=== PATIENT | female | born 1960 | race Caucasian/White ===

== ENCOUNTER → 2018-08-23 10:39 | Outpatient (CLI) | payer MEDICARE, MEDICAID, SELFPAY ==
--- NOTE | 2018-08-23 11:04 | XR_ITS ---
XR hand RT min 3V HISTORY: Right hand pain and swelling ITS.REASON: RT HAND PAIN ORDERING PHYSICIAN: Butch Lanza MD PATIENT AGE: 57 years COMPARISON: None FINDINGS: There has been prior fusion of the second DIP joint with a longitudinal screw in the distal aspect of the distal phalanx into the distal to mid middle phalanx. Osteoarthritic changes are present at the PIP and DIP of the third finger. There are osteoarthritic changes at the PIP of the fourth finger with subchondral lucencies laterally suggesting erosive osteoarthritis. Mild osteoarthritic changes of the DIP joint of the fifth finger. No fracture or dislocation. 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
== END ==
PROVIDERS: PCP Internal Medicine Adolescent Medicine; Visit Provider Internal Medicine Adolescent Medicine
DX: M79.641 Pain in right hand (principal)
CPT/HCPCS: 73130

== ENCOUNTER → 2019-02-13 14:19 | Outpatient (CLI) | payer MEDICARE, MEDICAID, SELFPAY ==
--- NOTE | 2019-02-13 14:23 | XR_ITS ---
PROCEDURE: XR HAND RT MIN 3V CLINICAL INDICATION: right hand/ thumb pain COMPARISON: [id number] XR hand RT min 3V from 08/23/2018 FINDINGS: There has been prior fusion at the DIP joint of the 2nd digit with a longitudinal screw extending from the tip of the distal phalanx into the mid aspect of the middle phalanx. There is bony fusion of the joint. Severe osteoarthritic changes are present involving the PIP of the 4th and 3rd digits and the DIP of the 3rd and 5th digits. The arthritic changes at the PIP joint of the 4th digit appear to be erosive osteoarthritic change. No fracture or dislocation. IMPRESSION: Prior fusion of the 2nd DIP joint Osteoarthritis Dictated by: Ryan Castillo MD 02/13/2019 16:28 Electronically signed by Ryan Castillo MD in [place] 02/13/2019 16:28
== END ==
PROVIDERS: Visit Provider Orthopaedic Surgery
DX: M79.641 Pain in right hand (principal)
CPT/HCPCS: 73130

== ENCOUNTER → 2019-04-12 09:26 | Outpatient (CLI) | payer MEDICARE, MEDICAID, SELFPAY ==
--- NOTE | 2019-04-12 09:28 | MM_ITS ---
PROCEDURE: MM DIG SCREENING MAMM BI W/CAD Patient Age:58Y CLINICAL INDICATION: screening routine mammogram Previous benign excisional biopsy right breast 1979 when the patient was 19 years old Family history. Two aunts with breast cancer COMPARISON: Prior studies from [place] have have arrived MY DIGITAL SCREEN BILAT from 03/01/2016 MY DIGITAL SCREEN BILAT from 03/28/2017 TECHNIQUE: Standard CC and MLO the images were obtained. R2 CAD reviewed. Bilateral axillary CC view included FINDINGS: The moderate density breast.Slight regression fibroglandular elements since 2016. No dominant or suspicious mass but the additional axillary CC views are helpful bilaterally Right breast appear stable with no new areas of concern. Follow-up right mammogram in 1 year A. previous studies marked a scar at the inferior breast from previous excisional biopsy. This area is stable. No significant findings here. High the Left breast appear stable no new areas of concern. IMPRESSION: Moderately dense, the slightly heterogeneous breast bilaterally-with mild asymmetry However I see no significant new findings compared to prior studies Bilateral follow-up 1 year would be adequate BI-RAD Category: 2 Benign Finding(s) FOLLOW-UP: 1YR 1 Year Follow-up (A letter has been sent to the patient regarding results of the study.) Dictated by: Jordan Rondon MD 04/18/2019 20:36 Electronically signed by Jordan Rondon MD in [place] 04/22/2019 11:28
== END ==
PROVIDERS: PCP Nurse Practitioner Family; Visit Provider Nurse Practitioner Family
DX: Z12.31 Encounter for screening mammogram for malignant neoplasm of breast (principal)
CPT/HCPCS: 77067

== ENCOUNTER 2019-04-29 08:00 | Outpatient (RCR) | payer MEDICARE, MEDICAID, SELFPAY ==
--- NOTE | 2019-03-21 11:20 | HMH.OTOPEV ---
OT Inpatient Evaluation Rehab OT Outpatient Eval Start: 03/21/19 10:59 Freq: Status: Active Protocol: Document 03/21/19 10:59 TFRY (Rec: 03/21/19 11:20 TFRY [id number]) Electronically Signed By Olga Wetzel OT 03/21/19 10:59 Outpatient Therapy Subjective History Subjective History This is a 58 year old right handed female referred to occupational therapy for hand pain and decreased movement. Patient states that the pain is has gotten worse in 6 months. Chief Complaint Pain,Spasms Symptom Type Ache,Dull,Numbness,Shooting Symptoms Relieved By Rest/Positioning,Brace/Support Symptoms Aggravated By Physical Activity Prior Functional Limitations None Current Functional Limitations None Level of pain today (0-10) 4 Pain scale - at its best (0-10) 1 Pain scale - at its worst (0-10) 8 Wrist/Hand Eval Palpation Tenderness/Visual Exam Wrist pain right tenderness wrist exam standard right Wrist/Hand Palpation Findings Tenderness Wrist Range of Motion Right Wrist ROM Reason Not Measured Within Functional Limits Wrist Manual Muscle Testing Right Wrist Extension Strength Grade 3+ Fair+ Wrist Flexion Strength Grade 3+ Fair+ Wrist Radial Deviation Strength Grade 3+ Fair+ Wrist Ulnar Deviation Strength Grade 3+ Fair+ Forearm Supination Strength Grade 3+ Fair+ Forearm Pronation Strength Grade 3+ Fair+ Seed Tester/Pinch Strength Seed Tester Strength Measurement (lbs) 2 Palmar Pinch (3-point) Ability Minimal Impairment Palmar Pinch (3-point) Strength 1 Measurement (lbs) Tip Pinch (2-point) Ability Minimal Impairment Tip Pinch (2-point) Strength Measurement 2 (lbs) Lateral Pinch Ability Minimal Impairment Lateral Pinch Strength Measurement (lbs) 4 OT Outpatient Assessment Impairments Problems/Impairments Palpation Tenderness,Impaired Strength,Impaired Lifting, Impaired Dressing,Impaired Household Care,Impaired Recreational Activities, Subjective C/O Pain Prognosis Rehab Potential Fair Clinical Impression Consistent with Diagnosis Yes Short Term Goals Number of Weeks 2 Decreased Palpation Tenderness Yes: right wrist Increase Strength Yes: increase wrist strength 4 -/5; right pre school teacher-4; pinch strength-2 lbs Decrease Subjective C/O Pain Yes: pain a 4 at worse in right p
--- NOTE | 2019-04-17 07:45 | HMH.RHREAS ---
Rehab Reassessment Rehab OP Re-assessment Start: 04/17/19 07:32 Freq: Status: Active Protocol: Document 04/17/19 07:34 TFRY (Rec: 04/17/19 07:45 TFRY [id number]) Electronically Signed By Olga Wetzel OT 04/17/19 07:34 Rehab Re-assessment Subjective Subjective My pain a 2 at worse. Objective Objective Notes Patient seen this date for skilled occupational therapy services. See exercise flow sheet for exercises. Reassessment of right wrist strength 4-/5 throughout. Right care rep strength - 10 lbs. Pinch strength remain the same. Patient reports decrease pain with all activities and not having pain as much pain as before. Pain at worse is a 2 on 0-10 scale . Assessment Progress Assessment Progressing as Expected Assessment Notes Strength noted to improve with a decrease in pain. Patient goals met STG's - /6 LTG's - 01/13 Goals Not Met strength goals Plan Plan Cont OT working on improving strength in right wrist and hand. Frequency of Therapy 1-2 times per week Duration of therapy 4 weeks Time and Billing Re-Eval Time 5 Re-Eval Billing Units 0 PHYSICIAN CERTIFICATION: I certify the specified therapy services for Karolinadannie Rangel are required, authorized, and reviewed every 30 days.
== END 2019-05-13 14:10 | disposition home or self-care (01) ==
LOC: OT 08:00
PROVIDERS: PCP Nurse Practitioner Family; Visit Provider Nurse Practitioner Family
DX: M79.641 Pain in right hand (principal); M25.641 Stiffness of right hand, not elsewhere classified
CPT/HCPCS: 97014; 97033; 97110; 97164; 97165; G0283

== ENCOUNTER → 2019-07-10 13:34 | Outpatient (CLI) | payer MEDICARE, MEDICAID, SELFPAY ==
[2019-07-10 14:23] LABS: Alanine Aminotransferase 26 U/L (12-78); Albumin Level 4.2 gm/dL (3.4-5.0); Albumin/Globulin Ratio 1.3 (1.1-1.8); Alkaline Phosphatase 83 U/L (46-116); Anion Gap 18.1 mEq/L (5-15); Aspartate Amino Transferase 16 U/L (15-37); Bilirubin,Total 0.3 mg/dL (0.2-1.0); Blood Urea Nitrogen 14 mg/dL (7-18); Calcium 9.6 mg/dL (8.5-10.1); Carbon Dioxide 22 mmol/L (21.0-32.0); Chloride 104 mmol/L (98-107); Chol/HDL Ratio 6.1 (1-3.5); Cholesterol 273 mg/dL (140-200); Estimated Glomerular Filt Rate 87 ml/min (>60); GFR (African American) 105 ML/MIN (>60); Globulin 3.2 gm/dl (1.3-3.2); Glucose 95 mg/dL (74-106); HDL Cholesterol 45 mg/dL (29-89); LDL Cholesterol 159 mg/dL (0-130); Potassium 4.1 mmoL/L (3.5-5.1); Sodium 140 mmol/L (136-145); T4 (Thyroxine) 7.9 ug/dl (4.7-13.3); Thyroid Stimulating Hormone 1.39 uIU/ml (0.358-3.740); Total Protein,Serum 7.4 gm/dL (6.4-8.2); Triglycerides 346 mg/dL (30-200); VLDL Cholesterol 69 mg/dL (0-40)
[2019-07-10 14:52] LABS: Basophils % 0.4 % (0.1-2.0); Eosinophils # 0.1 K/mm3 (0.0-0.4); Hematocrit 46.8 % (37.0-47.0); Hemoglobin 15.2 g/dL (12.2-16.2); Lymphocytes # 2.4 K/mm3 (0.7-4.5); Mean Corpuscular HGB Conc 32.5 g/dL (31.8-35.4); Mean Corpuscular Hemoglobin 29.7 pg (27.0-31.2); Mean Corpuscular Volume 91.6 fl (81-99); Mean Platelet Volume 9.6 fl (7.4-10.4); Monocytes # 0.4 K/mm3 (0.1-1.0); Monocytes % 6.4 % (1.7-9.3); Neutrophils # 3.9 K/mm3 (1.8-7.8); Neutrophils % 57.3 % (37.0-80.0); Platelet Count 333 K/mm3 (142-424); Red Blood Count 5.11 M/mm3 (4.20-5.40); Red Cell Distribution Width 12.9 % (11.5-17.5); White Blood Count 6.7 K/mm3 (4.8-10.8)
[2019-07-11 15:52] LABS: Vitamin D 25 Hydroxy 80.3 ng/mL (30.0-100.0)
[2019-07-11 15:53] LABS: Vitamin B12 716 pg/mL (232-1245)
== END ==
PROVIDERS: Visit Provider Nurse Practitioner Family
DX: M25.50 Pain in unspecified joint (principal); R53.83 Other fatigue; I10 Essential (primary) hypertension
CPT/HCPCS: 80053; 80061; 82607; 82652; 84436; 84443; 85025

== ENCOUNTER 2020-05-14 09:33 | Emergency (ER) | payer MEDICARE, MEDICAID, SELFPAY ==
[2020-05-14 09:42] VITALS: BP 108/50; PULSE 100; RESP 16; TEMP 36.9; O2SAT 98; BMI 26.6
[2020-05-14 09:59] VITALS: BP 108/50; PULSE 100; RESP 16; TEMP 36.9; O2SAT 98; BMI 26.6
--- NOTE | 2020-05-14 10:04 | HMH.EDUTC ---
[facility] [place] Clinical Impression: Back pain Qualifiers: Back pain location: back pain in other location Chronicity: chronic Qualified Code(s): M54.9 - Dorsalgia, unspecified Disposition: Home, Self-Care Condition on Discharge: Good Instructions: Low Back Pain, DI for Low Back Pain Additional Instructions: Go home and rest. It would be best if you rested tomorrow too. No heavy lifting. No twisting. Take the oral medications as directed. Don't start the oral steroids (medrol dose pack) until tomorrow, since you had the shots in here today. Follow up with your regular doctor. GO TO THE ER FOR ANY WORSENING SYMPTOMS OR CONCERN, ESPECIALLY BOWEL OR BLADDER ISSUES, SADDLE AREA NUMBNESS, FEVER, ETC DON'T TAKE THE IBUPROFEN WHILE YOU ARE ON THE MEDROL DOSE PACK (STEROIDS). BOTH OF THESE MEDICATIONS WILL BE DOING ABOUT THE SAME THING, SO TAKING THEM TOGETHER IS NOT INDICATED. AFTER YOU ARE FINISHED WITH STEROIDS YOU CAN TAKE THE IBUPROFEN. Prescriptions: methylPREDNISolone [Medrol] 4 mg PO DIRECTED 6 Days #21 tab.ds.pk Transmission Status: Received by [id number] Naproxen [Naproxen 500mg tab] 500 mg PO BIDP PRN #30 tab PRN Reason: Moderate Pain Transmission Status: Received by [id number] Referrals: Clayton Melton APRN [Primary Care Provider] - Time of Disposition: 10:37 Medical Decision Making - Medical Records Medical records reviewed: No: I reviewed the patient's medical records. - Dio Inquiry Pt receiving controlled substance: No Vital Signs: 05/14/20 09:42 05/14/20 09:59 05/14/20 10:40 Temperature 98.4 F 98.4 F 98.4 F Temperature Source Oral Oral Pulse Rate 100 H Pulse Rate [Right] 100 H 100 H Respiratory Rate 16 16 16 Blood Pressure 108/50 L Blood Pressure [Right Arm] 108/50 L 108/50 L Blood Pressure Mean [Right Arm] 69 69 Blood Pressure Source [Right Arm] Automatic Cuff Automatic Cuff Blood Pressure Position [Right Arm] Sitting Sitting 02 Sat by Pulse Oximetry 98 98 Oxygen Delivery Method Room Air Room Air Orders (Tests/Meds): ED MEDICATIONS Discontinued Medications Generic Name Dose Route Start Last Admin Trade Name Freq PRN Reason Stop Dose Admin Ketorolac Tromethamine 60 mg 05/14/20 10:16 05/14/20 10:32 Ketorolac 60mg/2ml Vial IM 05/14/20 10:17 60 mg ONCE ONE Administration Methylprednisolone Sodium Succinate 125 mg 05/14/20 10:16 05/14/20 10:32 Methylprednisolone Sod Succ 125mg Vial IM 05/14/20 10:17 125 mg ONCE ONE Administration [facility] [place] - General Stated complaint: tingling in hands & toes, back pain Time Seen by Provider: 05/14/20 10:05 Mode of Arrival: Ambulatory Source of Information: Patient Limitations: No Limitations Description of Symptoms (Recalled from Triage Doc. by RN): PATIENT C/O BACK AND NECK PAIN THAT STARTED THANKSGIVING. SHE STATES IN THE PAST 3 DAYS, PAIN HAS MOVED DOWN TO HIPS AND LEGS; C/O NUMBNESS AND ELECTRICAL SHOCK FEELING TO BILATERAL HANDS AND TOES. IBUPROFEN AND FLEXERIL ARE NOT HELPING, HEATING PAD AND LYING DOWN MAKES IT WORSE. HEENT Symptoms (Recalled from RN notes): No Resp Symptoms (Recalled from RN notes): No Skin Symptoms (Recalled from RN notes): No MS Symptoms (Recalled from RN notes): Yes Functional Status (Recalled from RN notes): WNL - History of Present Illness Provider Complaint: She c/o low back pain that radiates down both legs. She has a long history of this. She states that usually ibuprofen and flexeril have helped. But, at this time they have not relieved her pain. - Related Data Home Medications Medication Instructions Recorded Confirmed cholecalciferol (vitamin D3) 25 1,000 unit PO DAILY 03/08/19 07/10/19 mcg (1,000 unit) capsule Previous Rx's Medication Instructions Recorded cyclobenzaprine 10 mg tablet 10 mg PO TID #14 tab 03/08/19 simvastatin 5 mg tablet 5 mg PO DAILY #30 tab 07/20/19 pepsin 450 mg-amylase 60 mg-ox 1 t
[2020-05-14 10:40] VITALS: BP 108/50; PULSE 100; RESP 16; TEMP 36.9; O2SAT 98
== END 2020-05-14 10:45 | disposition home or self-care (01) ==
PROVIDERS: Emergency Provider Nurse Practitioner Family; PCP Nurse Practitioner Family
DX: M54.9 Dorsalgia, unspecified (principal); R20.2 Paresthesia of skin; E78.5 Hyperlipidemia, unspecified; F17.210 Nicotine dependence, cigarettes, uncomplicated; Z91.040 Latex allergy status; Z88.5 Allergy status to narcotic agent
CPT/HCPCS: G0463; 96372; 99201

== ENCOUNTER 2023-07-20 12:44 | Outpatient (CLI) | payer MEDICARE, MEDICAID, SELFPAY ==
[2023-07-20 13:11] LABS: Basophils % 0.4 % (0.1-2.0); Eosinophils # 0.1 K/mm3 (0.0-0.4); Eosinophils % 0.8 % (0.1-12.0); Hematocrit 49.5 % (37.0-47.0); Hemoglobin 16.7 g/dL (12.2-16.2); Lymphocytes # 2.4 K/mm3 (0.7-4.5); Lymphocytes % 29.5 % (10-50); Mean Corpuscular HGB Conc 33.7 g/dL (31.8-35.4); Mean Corpuscular Hemoglobin 31.3 pg (27.0-31.2); Mean Platelet Volume 8.5 fl (7.4-10.4); Monocytes # 0.5 K/mm3 (0.1-1.0); Monocytes % 6.5 % (1.7-9.3); Neutrophils # 5.2 K/mm3 (1.8-7.8); Neutrophils % 62.8 % (37.0-80.0); Platelet Count 259 K/mm3 (142-424); Red Blood Count 5.33 M/mm3 (4.20-5.40); White Blood Count 8.2 K/mm3 (4.8-10.8)
[2023-07-20 13:34] LABS: Alanine Aminotransferase 23 U/L (12-78); Albumin Level 4.7 g/dl (3.5-5.0); Albumin/Globulin Ratio 1.7 (1.1-1.8); Alkaline Phosphatase 98 U/L (38-126); Anion Gap 11.8 mEq/L (5-15); Aspartate Amino Transferase 27 U/L (14-36); Bilirubin,Total 0.6 mg/dl (0.2-1.3); Blood Urea Nitrogen 13 mg/dl (7-17); Carbon Dioxide 22 mmol/L (22.0-30.0); Chloride 112 mmol/L (98-107); Chol/HDL Ratio 4.8 (1-3.5); Cholesterol 279 mg/dl (140-200); Estimated Glomerular Filt Rate 102 ml/min (>60); GFR (African American) 123 ML/MIN (>60); Globulin 2.7 g/dL (1.3-3.2); Glucose 101 mg/dl (74-100); HDL Cholesterol 58 mg/dl (40-60); Potassium 3.8 mmoL/L (3.5-5.1); Sodium 142 mmol/L (136-145); Total Protein,Serum 7.4 g/dl (6.3-8.2); Triglycerides 133 mg/dl (30-150); VLDL Cholesterol 27 mg/dL (0-40)
[2023-07-20 13:45] LABS: Direct LDL Cholesterol 156.97 mg/dL (100-129)
[2023-07-20 13:51] LABS: 25-OH Vitamin D, Total 31.6 ng/mL (30-100)
[2023-07-20 13:57] LABS: Erythrocyte Sedimentation Rate 11 mm/hr (0-30)
[2023-07-20 14:05] LABS: Thyroid Stimulating Hormone 1.78 uIU/mL (0.465-4.68)
[2023-07-20 14:24] LABS: Vitamin B12 433 pg/mL (239-931)
[2023-07-20 19:50] LABS: Hemoglobin A1C 5.3 % (4.0-6.0)
== END 2023-07-20 23:59 ==
PROVIDERS: PCP Family Medicine; Visit Provider Family Medicine
DX: E78.5 Hyperlipidemia, unspecified (principal); R73.03 Prediabetes; E55.9 Vitamin D deficiency, unspecified; Z99.89 Dependence on other enabling machines and devices; M19.90 Unspecified osteoarthritis, unspecified site; E07.9 Disorder of thyroid, unspecified; E53.8 Deficiency of other specified B group vitamins
CPT/HCPCS: 36415; 80053; 80061; 82306; 82607; 83036; 84443; 85025; 85651

== ENCOUNTER 2023-09-12 10:04 | Outpatient (POV) | payer MEDICARE, MEDICAID, SELFPAY | END 2023-09-12 23:59 | disposition home or self-care (01) | LOC: SC 10:12 | PROVIDERS: Visit Provider Specialist/Technologist | DX: Z00.00 Encounter for general adult medical examination without abnormal findings (principal) ==

== ENCOUNTER 2023-09-14 16:15 | Outpatient (CLI) | payer MEDICARE, MEDICAID, SELFPAY ==
--- NOTE | 2023-09-14 16:32 | MR_ITS ---
PROCEDURE INFORMATION: Exam: MR Head Without and With Contrast; Internal Auditory Canals Exam date and time: 09/14/2023 4:42 PM Age: 62 years old Clinical indication: Pain; Dizziness and other: Loss of hearing in right ear; Migraine; Patient HX: Headaches, dizziness, loss of hearing in right ear, PT stated she will hear noises that are not there; Additional info: Asymmetrical hearing loss of rigth ear TECHNIQUE: Imaging protocol: MR of the head without and with intravenous contrast. Exam focused on the internal auditory canals. Contrast material: PROHANCE; Contrast volume: 15 ml; Contrast route: IV; COMPARISON: No relevant prior studies available. FINDINGS: Brain: Mild periventricular gliotic foci bilateral and symmetric indicative of chronic small vessel disease. Cerebral ventricles: No ventriculomegaly. Mastoid air cells: Unremarkable. No effusions. Internal auditory canals: Unremarkable. 7th and 8th cranial nerves are unremarkable. No abnormal masses. Bones/joints: Unremarkable. IMPRESSION: Mild changes of chronic small vessel disease. Otherwise unremarkable MRI IAC protocol exam.
[2023-09-14 16:36] LABS: Blood Urea Nitrogen 18 mg/dl (7-17); Estimated Glomerular Filt Rate 85 ml/min (>60); GFR (African American) 103 ML/MIN (>60)
[2023-09-14] MEDS: SODIUM CHLORIDE 0.9% 10ML SYR (RAD ONLY) 10 ML IV (18:11)
[2023-09-14] MEDS: GADOTERIDOL INJ 17ML SYRINGE 15 ML IV (18:11)
== END 2023-09-14 23:59 | disposition home or self-care (01) ==
PROVIDERS: Visit Provider Student in an Organized Health Care Education/Training Program
DX: H91.8X3 Other specified hearing loss, bilateral (principal); H93.11 Tinnitus, right ear; H91.91 Unspecified hearing loss, right ear
CPT/HCPCS: 36415; 70553; 82565; 84520; A9576